=== PATIENT | female | born 1965 | race Caucasian/White ===

== ENCOUNTER 2019-08-28 13:22 | Emergency (ER) | payer BC ==
[2019-08-28 13:49] VITALS: BP 119/75
[2019-08-28 14:45] LABS: Influenza A Molecular NEGATIVE (Negative); Influenza B Molecular NEGATIVE (Negative)
--- NOTE | 2019-08-28 15:15 | UC ---
FLU HPI - HPI Summary HPI Summary: Patient is a 54yo female presenting with fever, body aches, and headache 3 days. Notes she was dizzy earlier this morning. Patient states fever only lasted for 1 day and states it was 99 at home. Denies decreased appetite or fluid intake. Denies URI symptoms. Denies chills. Saad n/v. Denies SOB, wheezing, and chest pain. Patient requests sugar testing, as sometimes she " gets dizzy if sugar is low. Denies h/o diabetes and other adult illnesses. Also requests iron level testing, as she had "low iron years and years ago." - History of Current Complaint Chief Complaint: UCGeneralIllness Stated Complaint: FEVER, WEAK, DIZZY Hx Obtained From: Patient Onset/Duration: Sudden Onset, Lasting Days Severity Initially: Moderate Pain Intensity: 7 Pain Scale Used: 0-10 Numeric - Allergy/Home Medications Allergies/Adverse Reactions: Allergies Allergy/AdvReac Type Severity Reaction Status Date / Time No Known Allergies Allergy Verified 08/28/19 13:42 Home Medications: Home Medications NK [No Home Medications Reported] 08/28/19 [History Confirmed 08/28/19] PMH/Surg Hx/FS Hx/Imm Hx - Surgical History Surgical History: Yes Surgery Procedure, Year, and Place: feet - Family History Known Family History: Positive: Non-Contributory - Social History Occupation: Employed Part-time Alcohol Use: Occasionally Substance Use Type: None Smoking Status (MU): Never Smoked Tobacco Review of Systems All Other Systems Reviewed And Are Negative: Yes Constitutional: Positive: Fever, Fatigue. Negative: Chills ENT: Positive: Negative Respiratory: Positive: Negative. Negative: Shortness Of Breath, Cough Cardiovascular: Positive: Negative. Negative: Chest Pain Gastrointestinal: Positive: Negative. Negative: Vomiting, Nausea Genitourinary: Positive: Negative Musculoskeletal: Positive: Myalgia - generalized body aches Neurological: Positive: Headache. Negative: Paresthesia, Numbness Physical Exam Triage Information Reviewed: Yes Appearance: Well-Appearing, No Pain Distress, Well-Nourished Vital Signs: Initial Vital Signs Temp 97.4 F 08/28/19 13:38 Pulse 73 08/28/19 13:38 Resp 15 08/28/19 13:38 BP 119/75 08/28/19 13:38 Pulse Ox 98 08/28/19 13:38 Lab Results 08/28/19 08/28/19 Range/Units 14:33 15:30 POC Glucose (mg/dL) 109 H (70-100) mg/dL Influenza A (Rapid) Negative (Negative) Influenza B (Rapid) Negative (Negative) Vital Signs Reviewed: Yes Eyes: Positive: Conjunctiva Clear ENT: Positive: Hearing grossly normal, Pharynx normal, TMs normal, Uvula midline. Negative: Nasal congestion, Nasal drainage Neck exam: Normal Neck: Positive: Supple, Nontender, No Lymphadenopathy Respiratory Exam: Normal Respiratory: Positive: Lungs clear, Normal breath sounds, No respiratory distress Cardiovascular Exam: Normal Cardiovascular: Positive: RRR Musculoskeletal: Positive: No Edema Neurological: Positive: Alert Psychological: Positive: Age Appropriate Behavior Skin Exam: Normal Flu Course/Dx - Course Course Of Treatment: Patient POC glucose normal. Patient's VS and PE findings normal as well. No fever noted. Rapid flu test negative. Educate on viral illness and symptomatic treatment going forward. She opted to follow up and establish with primary care if desiring lab work including iron levels. Instructed to return or go to ED with new or worsening symptoms. Patient voiced understanding and agreed with the treatment plan. - Differential Dx/Diagnosis Provider Diagnosis: Generalized body aches, Fatigue Discharge ED - Sign-Out/Discharge Documenting (check all that apply): Patient Departure All imaging exams completed and their final reports reviewed: No Studies - Discharge Plan Condition: Stable Disposition: HOME Patient Education Materials: Viral Syndrome (ED) Forms: *Work Release Referrals: [facility] [Outside] [facility] [Outside] - As Soon As Possible Additional Instructions: As discussed, your rapid flu test was negative today. Your symptoms are likely caused by a different virus and should resolve within You may continue with aspirin or tylenol as directed for fever and pain relief. Your sugar level was normal today. Continue to rest and get plenty of fluids. It is recommended that you follow up with the [facility] listed below if your symptoms do not resolve within 7 days. If you are concerned about your iron levels, it is recommended that you follow up with the physician referral listed below for further evaluation. - Billing Disposition and Condition Condition: STABLE Disposition: Home
== END 2019-08-28 15:38 | disposition home or self-care (01) ==
LOC: UCEAST 13:22
DX: R53.83 Other fatigue (principal); M79.10 Myalgia, unspecified site; R50.9 Fever, unspecified; R51 Headache; R42 Dizziness and giddiness
CPT/HCPCS: 99201; G0463